=== PATIENT | female | born 1995 | race Caucasian/White ===

== ENCOUNTER 2018-06-30 08:35 | Outpatient (CLI) | payer OTHER ==
--- NOTE | 2018-06-30 09:53 | ULT ---
OB ULTRASOUND: HISTORY: anatomy. FINDINGS: A single live intrauterine gestation is seen with measurements corresponding to an estimated gestatio nal age of 19 weeks 5 days and LUIS at 11/19/2018. The estimated weight measures 303 gm or 11 ou nces. measurements are as follows: BPD 4.32 cm, 19 weeks 1 day HC 17.26 cm, 19 weeks 6 days AC 14.25 cm, 19 weeks 5 days FL 3.10 cm, 19 weeks 5 days heart rate measures 156 b.p.m. Placenta is anteriorly located without evidence of placenta pre via. Amniotic fluid appears to be adequate. A three-vessel cord, cord insertion, kidneys, bladder, stomach, 4-chamber heart, lateral ventri cles, cerebellum, spine, lips/nose, upper and lower extremities are visualized. No definite ab normalities are seen. IMPRESSION: Single live intrauterine of 19 weeks 5 days estimated gestational age and estimated date of delivery at 11/19/2018. POS: OFF
== END 2018-06-30 08:36 | disposition home or self-care (01) ==
LOC: BICULT 08:35
PROVIDERS: ATTEND Family Medicine
DX: Z34.82 Encounter for supervision of other normal pregnancy, second trimester (principal); Z3A.19 19 weeks gestation of pregnancy
CPT/HCPCS: 76805

== ENCOUNTER 2018-11-11 10:15 | Inpatient (IN) | payer OTHER ==
[2018-11-11] MEDS ORDERED: NS / Oxytocin 40 units/1000ml 1,000 ML IV PRN (10:21)
[2018-11-11] MEDS ORDERED: Ibuprofen 800 MG TAB PO PRN (10:21)
[2018-11-11] MEDS ORDERED: Methylergonovine 0.2 MG/ML VIAL IM PRN (10:21)
[2018-11-11] MEDS ORDERED: Carboprost 250 MCG/ML AMP IM PRN (10:21)
[2018-11-11] MEDS ORDERED: Diphenoxylate HCl/Atropine Tablet PO PRN (10:21)
[2018-11-11] MEDS ORDERED: Misoprostol 200 MCG TAB PR PRN (10:21)
[2018-11-11] MEDS ORDERED: Ondansetron PF 4 MG/2 ML Vial IVP PRN ×2 (10:21→18:50)
[2018-11-11] MEDS ORDERED: Lidocaine 1% (PF) 30 ML VIAL SC PRN (10:21)
[2018-11-11] MEDS ORDERED: Promethazine HCl 25 MG/ML VIAL IM PRN ×2 (10:21→18:50)
[2018-11-11] MEDS ORDERED: HYDROcodone/Acetaminophen 5/325 mg Tablet PO PRN ×3 (10:21→18:50)
[2018-11-11] MEDS ORDERED: Butorphanol Tartrate 1 MG/ML VIAL SLOW IVP PRN (10:21)
[2018-11-11] MEDS ORDERED: Penicillin G Potassium 5 MILL.UNITS in Sodium Chloride 0.9% 100 ML IVPB SCH (10:30)
[2018-11-11] MEDS ORDERED: NS w/ Oxytocin 10 units 500 ML IV SCH ×2 (10:30)
[2018-11-11] MEDS ORDERED: Penicillin G Potassium 5 MILL.UNITS VIAL ONE (10:48)
[2018-11-11 11:06] LABS: Hemoglobin 12.3 g/dL (12.0-16.0); Mean Corpuscular HGB CONC 35.4 g/dL (32.0-36.0); Mean Corpuscular Hemoglobin 31.8 pg (27.0-31.0); Mean Platelet Volume 9.5 fL (7.4-10.4); Platelet Count 166 thou/uL (130-400); RBC Distribution Width 12.4 % (11.5-14.5); Red Blood Cell (RBC) Count 3.87 mill/uL (4.20-5.40); White Blood Cell (WBC) Count 12.4 thou/uL (4.8-10.8)
[2018-11-11] MEDS ORDERED: Lidocaine 2% MPF 10 ML AMP (For Epidural Use) ONE (11:11)
[2018-11-11] MEDS ORDERED: Bupivacaine/Epinephrine 0.25% 30 ML VIAL ONE (11:11)
[2018-11-11 11:28] VITALS: BMI 27.9
[2018-11-11 11:55] LABS: HBSAg Index 0.35 S/CO (0-0.99); Hep B Surf Ag Non-Reactive S/CO (NonReactive); Syphilis Antibody Nonreactive (Nonreactive); Syphilis Antibody Index 0.05 S/CO (<1.00 Non-Reactive)
[2018-11-11] MEDS: Lactated Ringer's 1,000 ML IV SCH ×2 (13:12→23:57)
[2018-11-11] MEDS ORDERED: Fentanyl 4 mcg/Bup 0.1% Cadd 100 ML ONE (13:43)
[2018-11-11] MEDS ORDERED: Penicillin G 2.5 MILL.units 2.5 MILL.UNITS in Premix Bag 1 BAG IVPB SCH (15:00)
[2018-11-11] MEDS ORDERED: Preparation H Ointment 28 GM TUBE PR PRN (18:50)
[2018-11-11] MEDS ORDERED: Bisacodyl 10 MG SUPP PR PRN (18:50)
[2018-11-11] MEDS ORDERED: Milk Of Magnesia 30 ML UDCUP PO PRN (18:50)
[2018-11-11] MEDS ORDERED: NS / Oxytocin 40 units/1000ml 1,000 ML IV SCH (18:50)
[2018-11-11] MEDS ORDERED: Benzocaine-Menthol 82.5 ML CAN TOP PRN (18:50)
[2018-11-11] MEDS ORDERED: Lanolin Ointment 7 GM TUBE TOP PRN (18:50)
[2018-11-11] MEDS ORDERED: diphenhydrAMINE 25 MG CAP PO PRN (18:50)
[2018-11-11] MEDS: Docusate Calcium (SURFAK) 240 MG CAP PO SCH (21:59)
[2018-11-11] MEDS: Ibuprofen 800 MG TAB PO SCH (23:57)
[2018-11-12] MEDS: Ibuprofen 800 MG TAB PO SCH ×3 (05:00→22:27)
[2018-11-12 06:00] LABS: Hemoglobin 10.1 g/dL (12.0-16.0); Mean Corpuscular HGB CONC 34.3 g/dL (32.0-36.0); Mean Corpuscular Hemoglobin 31.6 pg (27.0-31.0); Mean Corpuscular Volume 92.2 fL (78.0-98.0); Mean Platelet Volume 9.9 fL (7.4-10.4); Platelet Count 126 thou/uL (130-400); RBC Distribution Width 12.4 % (11.5-14.5); Red Blood Cell (RBC) Count 3.18 mill/uL (4.20-5.40); White Blood Cell (WBC) Count 15.9 thou/uL (4.8-10.8)
[2018-11-12] MEDS: Docusate Calcium (SURFAK) 240 MG CAP PO SCH ×2 (08:31→22:27)
[2018-11-12] MEDS: Prenatal Vitamin 1 TAB PO SCH (08:31)
[2018-11-12] MEDS: Ferrous Sulfate 325 MG TAB PO SCH ×2 (14:50→17:43)
[2018-11-13] MEDS: Ibuprofen 800 MG TAB PO SCH ×2 (06:29→13:54)
[2018-11-13 09:19] VITALS: BP 121/70; TEMP 98.5
[2018-11-13] MEDS: Prenatal Vitamin 1 TAB PO SCH (09:26)
[2018-11-13] MEDS: Docusate Calcium (SURFAK) 240 MG CAP PO SCH (09:26)
[2018-11-13] MEDS: Ferrous Sulfate 325 MG TAB PO SCH ×2 (09:26→16:58)
== END 2018-11-13 18:30 | disposition home or self-care (01) | DRG 807 ==
LOC: L&D 10:15 → UNDOADMIN 10:15 → 3SW 21:33
PROVIDERS: ADMIT Family Medicine; ATTEND Family Medicine
PROC: 10907ZC Drainage of Amniotic Fluid, Therapeutic from Products of Conception, Via Natural or Artificial Opening (ICD-10-PCS; principal; 2018-11-11)
PROC: 10E0XZZ Delivery of Products of Conception, External Approach (ICD-10-PCS; 2018-11-11)
DX: O99.824 Streptococcus B carrier state complicating childbirth (principal); Z37.0 Single live birth; O70.0 First degree perineal laceration during delivery; Z3A.38 38 weeks gestation of pregnancy; O69.1XX0 Labor and delivery complicated by cord around neck, with compression, not applicable or unspecified
CPT/HCPCS: 36415; 85027; 85461; 86780; 86850; 86900; 86901; 87340; 90384; 96372; 99285; J2001; J2540